=== PATIENT | female | born 1930 | race African-American/Black ===

== ENCOUNTER 2016-10-15 08:15 | Emergency (ER) | payer MEDICARE, OTHER ==
[~2016-10-15] VITALS: Ht 165.1 cm; Wt 52.2 kg
--- NOTE | 2016-10-15 08:14 | Emergency Room Report ---
History of Present Illness General Source: Patient, EMS Present Illness HPI This is an 86-year-old female brought in by EMS after increased generalized weakness and a syncopal episode. The patient had been reportedly being increasingly weak. Patient had a syncopal episode while at her wheelchair. The patient been falling multiple times recently. Patient had loss of consciousness for several minutes. The per EMS there was no postictal period. Patient was describes having some shaking movements. History is obtained by EMS. Allergies: Coded Allergies: ASPIRIN (Verified Allergy, Unknown, 09/07/09) PENICILLINS (Verified Allergy, Unknown, 10/15/16) copied from uncoded section Patient History Past Medical History: HTN Reviewed Nursing Documentation: PMH: Agreed, PSxH: Agreed Review of Systems All Other Systems: limited - by mental status Physical Exam Sp02 EP Interpretation: normal General Appearance: alert, GCS 15, thin, Chronically Ill ENT: normal voice Neck: limited range of motion Respiratory: lungs clear, normal breath sounds Cardiovascular #1: normal peripheral pulses, regular rate, rhythm, no edema Genitourinary: normal inspection Musculoskeletal: normal inspection, back normal Neurologic: normal inspection, alert, oriented x3, responsive, supplier diversity director III-XII nml as tested, motor strength/tone normal Psychiatric: normal inspection Skin: pallor, other, abrasions - abrasion to both lower extremities with diminished pulses Medical Decision Making Diagnostic Impression: Primary Impression: Syncopal seizure Additional Impressions: Pituitary adenoma Peripheral vascular disease ER Course Patient presented for generalized weakness and syncope. Potential causes for syncope included but was not limited to arrhythmia, dehydration, acute coronary syndrome, severe anemia, pulmonary embolus.Because of complexity of patient's case laboratory testing and imaging studies were ordered. Patient was given IV fluids.The patient was noted to have EKG interpreted by me was normal sinus rhythm without acute ST or T wave changes CT the head was ordered due to the patient's recent falls CT of the head showed sella turcica mass unchanged from prior imaging, generalized atrophy changes without evident acute hemorrhage or CVA. The patient's granddaughter a showed a had video of what appears to be some focal motor movements predominantly right upper extremity. This may have been seizure activity.The patient does not have any history of seizures in the past. Patient will require further workup for seizures. Additionally patient was noted to have a complaint of bilateral lower extremity pain. The patient's extremities appear to be well perfused.The she may need further workup for new-onset seizures. Patient was loaded with IV Keppra.The patient discussed with [facility] [place] physician for transfer for continuity of care. Labs Test 10/15/16 09:10 White Blood Count 4.8 K/UL (4.8-10.8) Red Blood Count 3.32 M/UL (4.20-5.40) Hemoglobin 9.9 G/DL (12.0-16.0) Hematocrit 32.4 % (37.0-47.0) Mean Corpuscular Volume 97 FL (80-99) Mean Corpuscular Hemoglobin 30.0 PG (27.0-31.0) Mean Corpuscular Hemoglobin Concent 30.8 G/DL (32.0-36.0) Red Cell Distribution Width 11.9 % (11.6-14.8) Platelet Count 194 K/UL (150-450) Mean Platelet Volume 6.6 FL (6.5-10.1) Neutrophils (%) (Auto) 67.7 % (45.0-75.0) Lymphocytes (%) (Auto) 24.2 % (20.0-45.0) Monocytes (%) (Auto) 6.7 % (1.0-10.0) Eosinophils (%) (Auto) 0.6 % (0.0-3.0) Basophils (%) (Auto) 0.8 % (0.0-2.0) Prothrombin Time 10.6 SEC (9.30-11.50) Prothromb Time International Ratio 1.0 (0.9-1.1) Activated Partial Thromboplast Time 22 SEC (23-33) Sodium Level 146 mEQ/L (135-145) Potassium Level 3.6 mEQ/L (3.4-4.9) Chloride Level 105 mEQ/L (98-107) Carbon Dioxide Level 26 mEQ/L (20-30) Anion Gap 15 (5-15) Blood Urea Nitrogen 29 mg/dL (7-23) Creatinine 1.7 mg/dL (0.5-0.9) Estimat Glomerular Filtration Rate mL/min (>60) Glucose Level 95 mg/dL (74-106) Lactic Acid Level 1.40 mmol/L (0.66-2.22) Calcium Level 9.4 mg/dL (8.6-10.2) Total Bilirubin 0.9 mg/dL (0.0-1.2) Aspartate Amino Transf (AST/SGOT) 29 U/L (5-40) Alanine Aminotransferase (ALT/SGPT) 36 U/L (3-33) Alkaline Phosphatase 55 U/L (35-104) Total Creatine Kinase 44 U/L (26-140) Creatine Kinase MB < 1.5 ng/mL (< 3.8) Creatine Kinase MB Relative Index Troponin I < 0.30 ng/mL (<=0.30) Pro-B-Type Natriuretic Peptide 337 pg/mL (0-450) Total Protein 6.6 g/dL (6.6-8.7) Albumin 3.0 g/dL (3.5-5.2) Globulin 3.6 g/dL Albumin/Globulin Ratio 0.8 (1.0-2.7) Lipase 71 U/L (< 60) Thyroid Stimulating Hormone (TSH) 1.170 uIU/mL (0.300-4.500) EKG Diagnostic Results Rate: normal Rhythm: NSR ST Segments: no acute changes Rhythm Strip Diag. Results EP Interpretation: yes Rhythm: NSR, no PVC's, no ectopy Status: unchanged Disposition: ADMITTED INPATIENT Condition: Andrew Orozco Oct 15, 2016 08:14
[~2016-10-15 08:15] MED LIST: NKM
--- NOTE | 2016-10-15 09:15 | Diagnostic Imaging Report ---
Indications: Increased generalized weakness, syncopal episode, multiple instances recent head trauma, loss of consciousness Technique: Spiral acquisitions obtained through the brain. Angled axial and coronal 5 x 5 mm slices were reconstructed. Total dose length product 1400 mGycm. CTDI vol(s) 70 mGy. Dose reduction achieved using automated exposure control Comparison: 05/25/2007 Findings: There is a soft tissue mass widening the sella turcica, measures approximately 2.1 cm AP by 1.6 cm transverse by 1.8 cm AP. This is also evident on the 2007 exam, as well as subsequent MRI studies. There is age-related enlargement of the ventricles and extra-axial CSF spaces. There is periventricular deep white matter chronic ischemic change. No acute intracranial hemorrhage or edema. No mass effect nor midline shift. Otherwise normal vega-white differentiation. The included sinuses are clear. The mastoids are clear. Calvarium is intact. The orbits are unremarkable except for evidence of prior bilateral cataract surgery. 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
[2016-10-15 09:31] LABS: BASOPHILS % (AUTO) 0.8 % (0.0-2.0); EOSINOPHILS % (AUTO) 0.6 % (0.0-3.0); LYMPHOCYTES % (AUTO) 24.2 % (20.0-45.0); MEAN CORPUSCULAR HGB CONC 30.8 G/DL (32.0-36.0); MEAN CORPUSCULAR VOLUME 97 FL (80-99); MEAN PLATELET VOLUME 6.6 FL (6.5-10.1); MONOCYTES % (AUTO) 6.7 % (1.0-10.0); NEUTROPHILS % (AUTO) 67.7 % (45.0-75.0); PLATELET COUNT 194 K/UL (150-450); RED BLOOD COUNT 3.32 M/UL (4.20-5.40); RED CELL DISTRIBUTION WIDTH 11.9 % (11.6-14.8); WHITE BLOOD COUNT 4.8 K/UL (4.8-10.8)
[2016-10-15 09:33] VITALS: BP 155/65
[2016-10-15 09:36] LABS: PROTHROMBIN TIME 10.6 SEC (9.30-11.50)
[2016-10-15 09:41] LABS: TROPONIN I < 0.30 ng/mL (<=0.30)
[2016-10-15 09:43] LABS: ALANINE AMINOTRANSFERASE 36 U/L (3-33); ALBUMIN/GLOBULIN RATIO 0.8 (1.0-2.7); ANION GAP 15 (5-15); ASPARTATE AMINO TRANSFERASE 29 U/L (5-40); CALCIUM 9.4 mg/dL (8.6-10.2); CARBON DIOXIDE 26 mEQ/L (20-30); CHLORIDE 105 mEQ/L (98-107); CREATININE 1.7 mg/dL (0.5-0.9); HEMOLYSIS 64; LIPASE 71 U/L (< 60); POTASSIUM 3.6 mEQ/L (3.4-4.9); SODIUM 146 mEQ/L (135-145); TOTAL PROTEIN 6.6 g/dL (6.6-8.7)
[2016-10-15 09:54] LABS: CKMB < 1.5 ng/mL (< 3.8)
--- NOTE | 2016-10-15 10:11 | Diagnostic Imaging Report ---
Indication: Chest pain Technique: One view of the chest Comparison: 05/25/2007 Findings: Lung and pleural space are clear. Heart size is normal. Aorta is tortuous and ectatic. Upper mediastinum is unremarkable. There is no significant interim change Impression: No acute process
[2016-10-15] MEDS ORDERED: levETIRAcetam 500 MG in D5W 95 ML IVPB SCH (10:15)
[2016-10-15] MEDS ORDERED: levETIRAcetam 500mg vial IV ONE (10:21)
[2016-10-15 10:26] LABS: APPEARANCE,URINE SLIGHTLY CLOUDY; KETONES,URINE 1+ (NEGATIVE); LEUKOCYTE ESTERASE ,URINE 1+ (NEGATIVE); NITRITE,URINE NEGATIVE (NEGATIVE); PH,URINE 5 (4.5-8.0); PROTEIN,URINE 2+ (NEGATIVE); UROBILINOGEN,URINE 1 MG/DL (0.0-1.0)
[2016-10-15 10:33] LABS: RBC,URINE 0-2 /HPF (0 - 2); SQUAMOUS EPITHELIAL CELL,UR MODERATE /LPF (NONE/OCC)
[2016-10-15 10:34] LABS: AMORPHOUS SEDIMENT,UR OCCASIONAL /LPF; BACTERIA,URINE FEW /HPF; MUCUS,URINE MODERATE /LPF (NONE/OCC)
[2016-10-15 11:28] VITALS: BP 170/65
[2016-10-15 12:02] VITALS: BP 160/63
[2016-10-15 14:44] VITALS: BP 180/89
[2016-10-15 15:02] VITALS: BP 180/89
[2016-10-15 15:05] VITALS: BP 180/89
== END 2016-10-15 15:08 | disposition short-term general hospital (02) ==
LOC: EDBD 08:15 → EMR 08:59
DX: R55 Syncope and collapse (principal); D36.7 Benign neoplasm of other specified sites; I73.9 Peripheral vascular disease, unspecified; I10 Essential (primary) hypertension; Z88.6 Allergy status to analgesic agent; Z88.0 Allergy status to penicillin
CPT/HCPCS: 36415; 70450; 71010; 80053; 81003; 82550; 82553; 83605; 83690; 83880; 84300; 84443; 84484; 85025; 85610; 85730; 86850; 86900; 86901; 87040; 93005; 96374; 99285; J1953